=== PATIENT | female | born 1995 | race Hispanic/Latino ===

== ENCOUNTER 2018-06-21 18:32 | Emergency (ER) | payer BC ==
[~2018-06-21] VITALS: Ht 167.6 cm; Wt 61.2 kg
[2018-06-21] MEDS ORDERED: BELLADONNA ALK/PHENOBARBITAL 5 ML UDC PO STA (18:52)
[2018-06-21] MEDS ORDERED: MAGNESIUM/ALUMINUM/SIMETHICONE 30 ML UDC PO ONE (19:00)
[2018-06-21] MEDS ORDERED: LIDOCAINE VISC 2% SOLN 15 ML UDC PO ONE (19:00)
[2018-06-21] MEDS ORDERED: DONNATAL/LIDOCAINE/MAALOX 30 ML SUSP PO NR (19:00)
[2018-06-21 19:17] LABS: CLARITY,URINE HAZY (CLEAR); COLOR,URINE YELLOW (YELLOW); KETONES,URINE NEGATIVE (NEGATIVE); LEUKOCYTE ESTERASE ,URINE 1+ (NEGATIVE); NITRITE,URINE NEGATIVE (NEGATIVE); PROTEIN,URINE DIPSTICK NEGATIVE (NEGATIVE)
[2018-06-21 19:18] LABS: BILIRUBIN,URINE NEGATIVE (NEGATIVE); URINE UROBILINOGEN 1 mg/dL (0.2 - 1)
[2018-06-21 19:26] LABS: BACTERIA,URINE MODERATE /HPF; EPITHELIAL CELLS,URINE MODERATE /LPF; MUCUS,URINE MODERATE (RARE)
[2018-06-21] MEDS ORDERED: ONDANSETRON HCL 4 MG ORAL DISINTEGRATING TAB ONE (20:39)
[2018-06-21] MEDS ORDERED: ONDANSETRON HCL 4 MG ORAL DISINTEGRATING TAB PO ONE (20:45)
[2018-06-21 20:55] VITALS: BP 129/92
[2018-06-21] MEDS ORDERED: CEFDINIR300 MG PO (21:00)
[2018-06-21] MEDS ORDERED: ZOFRAN4 MG SL (21:00)
== END 2018-06-21 21:32 | disposition home or self-care (01) ==
LOC: ER 18:32
DX: R10.84 Generalized abdominal pain (principal); R30.0 Dysuria; N30.91 Cystitis, unspecified with hematuria; K21.9 Gastro-esophageal reflux disease without esophagitis; F32.9 Major depressive disorder, single episode, unspecified
CPT/HCPCS: 81001; 99283

== ENCOUNTER 2018-08-04 00:22 | Emergency (ER) | payer BC ==
[~2018-08-04 00:22] MED LIST: CEFDINIR300 MG PO; ZOFRAN4 MG SL
== END 2018-08-04 00:30 | disposition left against medical advice (07) ==
LOC: ER 00:22
DX: R10.9 Unspecified abdominal pain (principal)